=== PATIENT | male | born 1940 | race Caucasian/White ===

== ENCOUNTER 2018-11-02 13:33 | Outpatient (CLI) | payer BC, MEDICARE | END 2018-11-02 23:59 | disposition home or self-care (01) | LOC: CFH 13:33 | PROVIDERS: ATTEND Family Medicine | DX: I08.1 Rheumatic disorders of both mitral and tricuspid valves (principal); I48.1 Persistent atrial fibrillation; I10 Essential (primary) hypertension; E78.5 Hyperlipidemia, unspecified | CPT/HCPCS: 93306 ==

== ENCOUNTER 2019-04-25 04:28 | Inpatient (IN) | payer BC, MEDICARE ==
[2019-04-24 13:26] LABS: MICROSCOPIC NOT IND
[2019-04-24 13:33] LABS: CULTURE INDICATED? NO
[2019-04-24 13:36] LABS: BASOPHILS # (AUTO) 0.03 x10^3/uL (0-0.1); BASOPHILS % (AUTO) 1 % (0-1); EOSINOPHILS # (AUTO) 0.21 x10^3/uL (0-0.4); EOSINOPHILS % (AUTO) 4 % (1-7); LYMPHOCYTES # (AUTO) 1.38 x10^3/uL (1-3.4); LYMPHOCYTES % (AUTO) 25 % (22-44); MD NO; MEAN CORPUSCULAR HEMOGLOBIN 31.6 pg (27.5-34.5); MEAN CORPUSCULAR HGB CONC 32.8 g/dL (33.2-36.2); MEAN CORPUSCULAR VOLUME 96.3 fL (81-97); MONOCYTES # (AUTO) 0.63 x10^3/uL (0.2-0.8); MONOCYTES % (AUTO) 11 % (2-9); NEUTROPHILS # (AUTO) 3.36 x10^3/uL (1.8-6.8); NEUTROPHILS % (AUTO) 60 % (42-75); PLATELET COUNT 240 x10^3/uL (130-400); RED BLOOD COUNT 4.89 x10^6/uL (4.38-5.82); RED CELL DISTRIBUTION WIDTH 14.6 % (9.4-14.8)
[2019-04-24 13:46] LABS: INTERNATIONAL NORMALIZED RATIO 1.01 (0.93-1.1); PROTHROMBIN TIME 10.7 Seconds (9.6-11.5)
[2019-04-24 13:48] LABS: ALANINE AMINOTRANSFERASE 49 U/L (12-78); ALBUMIN 3.9 g/dL (3.4-5.0); ANION GAP 5 mmol/L (5-15); CALCIUM 9.2 mg/dL (8.5-10.1); CHLORIDE 109 mmol/L (98-107); CREATININE 1.05 mg/dL (0.7-1.3)
[2019-04-24 13:50] LABS: ALKALINE PHOSPHATASE 72 U/L (45-117); BILIRUBIN,TOTAL 0.8 mg/dL (0.2-1.0); TOTAL PROTEIN 7.1 g/dL (6.4-8.2)
[~2019-04-25] VITALS: Ht 175.3 cm; Wt 97.3 kg
[~2019-04-25 04:28] MED LIST: APIX5TAB PO; ATOR10TA9 PO; METO-93 PO; MULT-658 PO; Magnesium PO; TIMO2.5D4 OP; TIMO5DRO28 OP; [UNRECOGNIZED DRUG - CODE] PO
[2019-04-25 04:45] VITALS: BP 153/90
[2019-04-25 04:46] VITALS: BP 150/88
[2019-04-25] MEDS ORDERED: INSULIN LISPRO 100 UNITS/ML, PEN SQ-INSULIN SCH (05:00)
[2019-04-25] MEDS ORDERED: ACETAMINOPHEN 325 MG TABLET PO PRN ×2 (05:00→12:00)
[2019-04-25] MEDS ORDERED: CHLORHEXIDINE 15 ML UDC MM PRN (05:00)
[2019-04-25] MEDS ORDERED: FENTANYL PF 250 MCG/5ML ONE ×4 (06:45→06:46)
[2019-04-25] MEDS ORDERED: MIDAZOLAM 10MG/2 ML ONE (06:45)
[2019-04-25] MEDS ORDERED: AMINOCAPROIC ACID 250 MG/ML, 20ML ONE ×2 (06:46)
[2019-04-25] MEDS ORDERED: EPINEPHRINE 1 MG/ML, 1ML ONE (06:46)
[2019-04-25] MEDS ORDERED: CALCIUM CHLORIDE 10%, 10ML SYR ONE (06:46)
[2019-04-25] MEDS ORDERED: ROCURONIUM 10MG/ML,5ML ONE ×2 (06:46)
[2019-04-25] MEDS ORDERED: PROPOFOL 10 MG/ML, 20ML ONE (06:46)
[2019-04-25] MEDS ORDERED: PHENYLEPHRINE 10 MG/ML ONE (06:46)
[2019-04-25] MEDS ORDERED: VANCOMYCIN 1,400 MG in SODIUM CHLORIDE 0.9% 250 ML IV PRN (07:30)
[2019-04-25] MEDS ORDERED: MANNITOL PMX 20% 500 ML IVPB PRN (07:30)
[2019-04-25] MEDS ORDERED: POTASSIUM CHLORIDE 80 MEQ, SODIUM BICARBONATE 8.4% 10 MEQ, MAGNESIUM SULFATE 0.5 GM, LI... IV PRN (07:30)
[2019-04-25] MEDS ORDERED: DEXMEDETOMIDINE 200 MCG in SODIUM CHLORIDE 0.9% 48 ML IV SCH (07:30)
[2019-04-25] MEDS ORDERED: CEFUROXIME 1.5 GM in SODIUM CHLORIDE 0.9% 50 ML IVPB PRN (07:30)
[2019-04-25] MEDS ORDERED: ALBUMIN HUMAN 5% 500 ML IV PRN (07:30)
[2019-04-25] MEDS ORDERED: EPINEPHRINE 2 MG in SODIUM CHLORIDE 0.9% 248 ML IV SCH (07:30)
[2019-04-25] MEDS ORDERED: REGULAR INSULIN 62.5 UNITS in SODIUM CHLORIDE 0.9% 249.375 ML IV PRN ×2 (07:30→12:00)
[2019-04-25] MEDS ORDERED: PHENYLEPHRINE 10 MG in SODIUM CHLORIDE 0.9% 249 ML IV PRN ×2 (07:30→11:45)
[2019-04-25] MEDS ORDERED: SODIUM CHLORIDE FLUSH 10ML SYR IVF SCH (09:00)
[2019-04-25] MEDS ORDERED: MUPIROCIN OINT 2%, 22GM TP SCH (09:00)
[2019-04-25] MEDS: DOCUSATE 100 MG CAPSULE PO SCH ×2 (09:00→21:00)
[2019-04-25] MEDS ORDERED: FENTANYL PF 100 MCG/2ML ONE ×2 (11:00→11:10)
[2019-04-25] MEDS ORDERED: VASOPRESSIN 50 UNIT in SODIUM CHLORIDE 0.9% 247.5 ML IV PRN (11:45)
[2019-04-25] MEDS ORDERED: NITROGLYCERIN/D5W PMX 250 ML IV PRN (11:45)
[2019-04-25] MEDS ORDERED: DEXMEDETOMIDINE 200 MCG in SODIUM CHLORIDE 0.9% 48 ML IV PRN (11:45)
[2019-04-25] MEDS ORDERED: DOBUTAMINE 250 MG in SODIUM CHLORIDE 0.9% 230 ML IV PRN (11:45)
[2019-04-25] MEDS ORDERED: SODIUM CHLORIDE 0.9% 1,000 ML IV PRN (11:45)
[2019-04-25] MEDS ORDERED: GLUCAGON 1 MG IM PRN (12:00)
[2019-04-25] MEDS ORDERED: PROCHLORPERAZINE 5 MG/ML, 2ML IVPush PRN (12:00)
[2019-04-25] MEDS ORDERED: morphine SULFATE 10 MG/ML, 1ML IVPush PRN (12:00)
[2019-04-25] MEDS ORDERED: ONDANSETRON 2MG/ML, 2ML IVPush PRN (12:00)
[2019-04-25] MEDS ORDERED: BISACODYL 5 MG EC TABLET PO PRN (12:00)
[2019-04-25] MEDS ORDERED: DEXTROSE 4 GM TAB.CHEW PO PRN (12:00)
[2019-04-25] MEDS: KSCALE TO 4.5 IV SCH ×2 (12:00→18:00)
[2019-04-25] MEDS ORDERED: MAGNESIUM SULFATE 1 GM in SODIUM CHLORIDE 0.9% 50 ML IVPB SCH (12:00)
[2019-04-25] MEDS ORDERED: HYDROcodone/APAP 10/325 MG TABLET PO PRN (12:00)
[2019-04-25] MEDS ORDERED: ACETAMINOPHEN 650 MG SUPP PR PRN (12:00)
[2019-04-25] MEDS ORDERED: BISACODYL 10 MG SUPP PR PRN (12:00)
[2019-04-25] MEDS ORDERED: DEXTROSE 50%, 50ML SYRINGE IVPush PRN (12:00)
[2019-04-25] MEDS ORDERED: MIDAZOLAM 1 MG/ML, 5ML IVPush PRN (12:00)
[2019-04-25] MEDS ORDERED: SODIUM BICARB 8.4%, 50ML SYRINGE IV PRN ×2 (12:00→18:30)
[2019-04-25] MEDS ORDERED: methylPREDNISolone SOD SUCC 125 MG/2 ML ONE (12:09)
[2019-04-25] MEDS ORDERED: SODIUM BICARB 8.4%, 50ML SYRINGE ONE (12:09)
[2019-04-25] MEDS ORDERED: LIDOCAINE-MPF 2% ,5ML ONE (12:09)
[2019-04-25] MEDS ORDERED: HEPARIN 1,000 UNITS/ML, 30ML ONE (12:09)
[2019-04-25] MEDS ORDERED: ALBUMIN HUMAN 25% 50 ML ONE (12:10)
[2019-04-25 12:14] LABS: GLUCOSE BY BLOOD GAS ANALYZER 107 mg/dL (70-110); HEMOGLOBIN BY BLOOD GAS ANALYZ 13.6 g/dL (14.0-18.0); POTASSIUM BY BLOOD GAS ANALYZR 3.7 mmol/L (3.6-5.5)
[2019-04-25 12:37] LABS: INTERNATIONAL NORMALIZED RATIO 1.34 (0.93-1.1); PROTHROMBIN TIME 14.2 Seconds (9.6-11.5)
[2019-04-25] MEDS: MAGNESIUM SULFATE/D5W 100 ML IVPB SCH (12:40)
[2019-04-25] MEDS ORDERED: POTASSIUM CHLORIDE PMX 100 ML IV ONE ×2 (13:00→19:00)
[2019-04-25] MEDS: INSULIN LISPRO 100 UNITS/ML, PEN SQ-INSULIN SCH ×2 (16:00→21:00)
[2019-04-25] MEDS: LACTATED RINGERS 1,000 ML IV PRN ×2 (16:39→23:53)
[2019-04-25] MEDS: EPINEPHRINE 2 MG in SODIUM CHLORIDE 0.9% 248 ML IV PRN (16:39)
[2019-04-25] MEDS: VANCOMYCIN 1,400 MG in SODIUM CHLORIDE 0.9% 250 ML IVPB SCH (19:35)
[2019-04-25] MEDS: CEFUROXIME 1.5 GM in SODIUM CHLORIDE 0.9% 50 ML IVPB SCH (20:27)
[2019-04-25] MEDS: HYDROcodone/APAP 5/325 TABLET PO PRN (21:04)
[2019-04-25] MEDS: SODIUM CHLORIDE FLUSH 10ML SYR IVF SCH (21:06)
[2019-04-25] MEDS: MUPIROCIN OINT 2%, 22GM NAS SCH (23:51)
[2019-04-26] MEDS: LACTATED RINGERS 1,000 ML IV PRN (02:48)
[2019-04-26] MEDS: HYDROcodone/APAP 5/325 TABLET PO PRN (02:49)
[2019-04-26] MEDS: EPINEPHRINE 2 MG in SODIUM CHLORIDE 0.9% 248 ML IV PRN (03:02)
[2019-04-26 05:20] LABS: ALBUMIN 3.2 g/dL (3.4-5.0); ANION GAP 5 mmol/L (5-15); CALCIUM 7.7 mg/dL (8.5-10.1); CHLORIDE 115 mmol/L (98-107); CREATININE 0.75 mg/dL (0.7-1.3)
[2019-04-26 05:23] LABS: BASOPHILS # (AUTO) 0.03 x10^3/uL (0-0.1); BASOPHILS % (AUTO) 0 % (0-1); EOSINOPHILS % (AUTO) 0 % (1-7); LYMPHOCYTES # (AUTO) 0.44 x10^3/uL (1-3.4); LYMPHOCYTES % (AUTO) 5 % (22-44); MD NO; MEAN CORPUSCULAR HEMOGLOBIN 32.1 pg (27.5-34.5); MEAN CORPUSCULAR HGB CONC 33.6 g/dL (33.2-36.2); MEAN CORPUSCULAR VOLUME 95.5 fL (81-97); MEAN PLATELET VOLUME 7.6 fL (7.4-10.4); MONOCYTES # (AUTO) 0.83 x10^3/uL (0.2-0.8); MONOCYTES % (AUTO) 10 % (2-9); NEUTROPHILS % (AUTO) 84 % (42-75); PLATELET COUNT 117 x10^3/uL (130-400); RED BLOOD COUNT 3.76 x10^6/uL (4.38-5.82); RED CELL DISTRIBUTION WIDTH 14.4 % (9.4-14.8)
[2019-04-26 05:31] LABS: INTERNATIONAL NORMALIZED RATIO 1.11 (0.93-1.1); PROTHROMBIN TIME 11.8 Seconds (9.6-11.5)
[2019-04-26] MEDS: KSCALE TO 4.5 IV SCH ×2 (06:00)
[2019-04-26] MEDS: CEFUROXIME 1.5 GM in SODIUM CHLORIDE 0.9% 50 ML IVPB SCH (06:26)
[2019-04-26] MEDS: INSULIN LISPRO 100 UNITS/ML, PEN SQ-INSULIN SCH ×4 (06:34→20:15)
[2019-04-26] MEDS: VANCOMYCIN 1,400 MG in SODIUM CHLORIDE 0.9% 250 ML IVPB SCH (08:28)
[2019-04-26] MEDS: DOCUSATE 100 MG CAPSULE PO SCH ×2 (08:51→20:12)
[2019-04-26] MEDS: MUPIROCIN OINT 2%, 22GM NAS SCH ×2 (08:51→20:12)
[2019-04-26] MEDS: SODIUM CHLORIDE FLUSH 10ML SYR IVF SCH ×2 (08:51→20:11)
[2019-04-26] MEDS: ASPIRIN 81 MG TABLET EC PO SCH (08:51)
[2019-04-26] MEDS ORDERED: WARFARIN BIOPROSTHETIC VALVE PROTOCOL 2-3 XX SCH (09:00)
[2019-04-26] MEDS ORDERED: FUROSEMIDE 40 MG/4 ML IV ONE (10:00)
[2019-04-26] MEDS ORDERED: FUROSEMIDE 40 MG/4 ML ONE (10:01)
[2019-04-26] MEDS: MAGNESIUM SULFATE/D5W 100 ML IVPB SCH (13:47)
[2019-04-26] MEDS: OXYcodone IR 5MG TABLET PO PRN ×2 (13:47→20:13)
[2019-04-26] MEDS ORDERED: WARFARIN 5 MG TABLET PO-COUM ONE (18:00)
[2019-04-26] MEDS: CHLORHEXIDINE 15 ML UDC MM SCH (20:12)
[2019-04-27] MEDS: OXYcodone IR 5MG TABLET PO PRN ×3 (03:04→20:06)
[2019-04-27 04:33] LABS: INTERNATIONAL NORMALIZED RATIO 1.07 (0.93-1.1); PROTHROMBIN TIME 11.4 Seconds (9.6-11.5)
[2019-04-27 04:36] LABS: BASOPHILS # (AUTO) 0.04 x10^3/uL (0-0.1); BASOPHILS % (AUTO) 0 % (0-1); EOSINOPHILS # (AUTO) 0.01 x10^3/uL (0-0.4); EOSINOPHILS % (AUTO) 0 % (1-7); LYMPHOCYTES # (AUTO) 0.69 x10^3/uL (1-3.4); LYMPHOCYTES % (AUTO) 7 % (22-44); MD NO; MEAN CORPUSCULAR HEMOGLOBIN 32.5 pg (27.5-34.5); MEAN CORPUSCULAR HGB CONC 33.7 g/dL (33.2-36.2); MEAN CORPUSCULAR VOLUME 96.3 fL (81-97); MEAN PLATELET VOLUME 8.3 fL (7.4-10.4); MONOCYTES # (AUTO) 1.27 x10^3/uL (0.2-0.8); MONOCYTES % (AUTO) 12 % (2-9); NEUTROPHILS # (AUTO) 8.43 x10^3/uL (1.8-6.8); NEUTROPHILS % (AUTO) 81 % (42-75); PLATELET COUNT 118 x10^3/uL (130-400); RED BLOOD COUNT 3.76 x10^6/uL (4.38-5.82); RED CELL DISTRIBUTION WIDTH 14.6 % (9.4-14.8)
[2019-04-27 04:37] LABS: ANION GAP 6 mmol/L (5-15); CALCIUM 8.2 mg/dL (8.5-10.1); CHLORIDE 109 mmol/L (98-107)
[2019-04-27 04:41] LABS: CHOL/HDL RATIO 2.2; CHOLESTEROL, TOTAL 89 mg/dL (140-239); CREATININE 0.68 mg/dL (0.7-1.3); HDL CHOL % 45 % (26-37); HDL CHOLESTEROL (DIRECT) 40 mg/dL (40-60); LDL CHOLESTEROL,CALCULATED 35 mg/dL (54-169); LDL/HDL RATIO 0.9 (0.5-3.0); TRIGLYCERIDES 69 mg/dL (50-200); VLDL CHOLESTEROL 14 mg/dL (0-25)
[2019-04-27] MEDS: INSULIN LISPRO 100 UNITS/ML, PEN SQ-INSULIN SCH ×3 (06:10→20:09)
[2019-04-27] MEDS: SODIUM CHLORIDE FLUSH 10ML SYR IVF SCH ×2 (08:02→20:06)
[2019-04-27] MEDS: MUPIROCIN OINT 2%, 22GM NAS SCH ×2 (08:03→20:06)
[2019-04-27] MEDS: CHLORHEXIDINE 15 ML UDC MM SCH ×2 (08:03→20:06)
[2019-04-27] MEDS: ASPIRIN 81 MG TABLET EC PO SCH (08:03)
[2019-04-27] MEDS: DOCUSATE 100 MG CAPSULE PO SCH ×2 (08:03→20:04)
[2019-04-27] MEDS ORDERED: FUROSEMIDE 20 MG/2 ML ONE (08:06)
[2019-04-27] MEDS: FUROSEMIDE 20 MG/2 ML IV SCH (08:08)
[2019-04-27] MEDS ORDERED: CEFAZOLIN PMX 1GM/50ML 0 ML ONE ×2 (12:18→12:24)
[2019-04-27] MEDS ORDERED: LIDOCAINE 2%, 20ML ONE ×2 (12:18→12:24)
[2019-04-27] MEDS ORDERED: CEFAZOLIN 1,000 MG ONE ×2 (12:18→12:24)
[2019-04-27] MEDS ORDERED: MIDAZOLAM 1 MG/ML, 5ML ONE ×2 (12:18→12:24)
[2019-04-27] MEDS ORDERED: FENTANYL PF 100 MCG/2ML ONE ×2 (12:18→12:24)
[2019-04-27] MEDS: MAGNESIUM SULFATE/D5W 100 ML IVPB SCH (14:18)
[2019-04-27] MEDS: ATORVASTATIN 10 MG TABLET PO SCH (20:04)
[2019-04-28 06:05] LABS: INTERNATIONAL NORMALIZED RATIO 1.14 (0.93-1.1); PROTHROMBIN TIME 12.1 Seconds (9.6-11.5)
[2019-04-28 06:17] LABS: ANION GAP 6 mmol/L (5-15); CHLORIDE 106 mmol/L (98-107)
[2019-04-28 06:18] LABS: CREATININE 0.72 mg/dL (0.7-1.3)
[2019-04-28 06:33] LABS: BASOPHILS # (AUTO) 0.08 x10^3/uL (0-0.1); BASOPHILS % (AUTO) 1 % (0-1); EOSINOPHILS # (AUTO) 0.07 x10^3/uL (0-0.4); EOSINOPHILS % (AUTO) 1 % (1-7); LYMPHOCYTES # (AUTO) 0.71 x10^3/uL (1-3.4); LYMPHOCYTES % (AUTO) 9 % (22-44); MD NO; MEAN CORPUSCULAR HEMOGLOBIN 32.3 pg (27.5-34.5); MEAN CORPUSCULAR HGB CONC 33.3 g/dL (33.2-36.2); MEAN CORPUSCULAR VOLUME 96.9 fL (81-97); MEAN PLATELET VOLUME 8.2 fL (7.4-10.4); MONOCYTES # (AUTO) 1.03 x10^3/uL (0.2-0.8); MONOCYTES % (AUTO) 13 % (2-9); NEUTROPHILS # (AUTO) 6.26 x10^3/uL (1.8-6.8); NEUTROPHILS % (AUTO) 77 % (42-75); PLATELET COUNT 117 x10^3/uL (130-400); RED BLOOD COUNT 3.74 x10^6/uL (4.38-5.82); RED CELL DISTRIBUTION WIDTH 14.9 % (9.4-14.8)
[2019-04-28] MEDS: INSULIN LISPRO 100 UNITS/ML, PEN SQ-INSULIN SCH ×2 (07:00→11:00)
[2019-04-28] MEDS: CHLORHEXIDINE 15 ML UDC MM SCH (07:54)
[2019-04-28] MEDS: MUPIROCIN OINT 2%, 22GM NAS SCH ×2 (07:55→20:36)
[2019-04-28] MEDS: DOCUSATE 100 MG CAPSULE PO SCH ×2 (07:55→20:34)
[2019-04-28] MEDS: SODIUM CHLORIDE FLUSH 10ML SYR IVF SCH ×4 (07:55→21:00)
[2019-04-28] MEDS: ASPIRIN 81 MG TABLET EC PO SCH (07:55)
[2019-04-28] MEDS: FUROSEMIDE 20 MG/2 ML IV SCH (07:55)
[2019-04-28] MEDS ORDERED: MAGNESIUM HYDROXIDE 8%, 30ML UDC PO PRN (09:00)
[2019-04-28] MEDS ORDERED: LIDOCAINE 2%, 20ML ONE (12:46)
[2019-04-28] MEDS ORDERED: MIDAZOLAM 1 MG/ML, 5ML ONE (12:46)
[2019-04-28] MEDS ORDERED: CEFAZOLIN 1,000 MG ONE (12:46)
[2019-04-28] MEDS ORDERED: CEFAZOLIN PMX 1GM/50ML 50 ML ONE (12:46)
[2019-04-28] MEDS ORDERED: FENTANYL PF 100 MCG/2ML ONE (12:46)
[2019-04-28] MEDS ORDERED: HOLD MEDICATION MC PRN (14:30)
[2019-04-28 19:01] VITALS: BP 132/77
[2019-04-28 20:32] VITALS: BP 132/72
[2019-04-28] MEDS: ATORVASTATIN 10 MG TABLET PO SCH (20:34)
[2019-04-28] MEDS: CEFAZOLIN PMX 1GM/50ML 50 ML IVPB SCH (20:36)
[2019-04-28] MEDS: OXYcodone IR 5MG TABLET PO PRN (20:44)
[2019-04-29 01:20] VITALS: BP 135/75
[2019-04-29] MEDS: CEFAZOLIN PMX 1GM/50ML 50 ML IVPB SCH ×2 (05:01→16:35)
[2019-04-29 05:05] LABS: BASOPHILS # (AUTO) 0.05 x10^3/uL (0-0.1); BASOPHILS % (AUTO) 1 % (0-1); EOSINOPHILS # (AUTO) 0.13 x10^3/uL (0-0.4); EOSINOPHILS % (AUTO) 2 % (1-7); LYMPHOCYTES % (AUTO) 15 % (22-44); MD NO; MEAN CORPUSCULAR HEMOGLOBIN 32.5 pg (27.5-34.5); MEAN CORPUSCULAR HGB CONC 33.9 g/dL (33.2-36.2); MEAN CORPUSCULAR VOLUME 95.8 fL (81-97); MEAN PLATELET VOLUME 8.2 fL (7.4-10.4); MONOCYTES # (AUTO) 0.85 x10^3/uL (0.2-0.8); MONOCYTES % (AUTO) 14 % (2-9); NEUTROPHILS # (AUTO) 4.01 x10^3/uL (1.8-6.8); NEUTROPHILS % (AUTO) 68 % (42-75); PLATELET COUNT 130 x10^3/uL (130-400); RED BLOOD COUNT 3.37 x10^6/uL (4.38-5.82); RED CELL DISTRIBUTION WIDTH 14.6 % (9.4-14.8)
[2019-04-29 05:09] LABS: INTERNATIONAL NORMALIZED RATIO 1.16 (0.93-1.1); PROTHROMBIN TIME 12.3 Seconds (9.6-11.5)
[2019-04-29 05:12] LABS: ANION GAP 4 mmol/L (5-15); CALCIUM 7.5 mg/dL (8.5-10.1); CHLORIDE 107 mmol/L (98-107)
[2019-04-29 07:35] VITALS: BP 156/80
[2019-04-29] MEDS ORDERED: WARFARIN BIOPROSTHETIC VALVE PROTOCOL 2-3 XX PRN (08:00)
[2019-04-29] MEDS: SODIUM CHLORIDE FLUSH 10ML SYR IVF SCH ×6 (08:19→21:00)
[2019-04-29] MEDS ORDERED: FUROSEMIDE 40 MG/4 ML ONE (09:05)
[2019-04-29] MEDS: DOCUSATE 100 MG CAPSULE PO SCH ×2 (09:11→21:00)
[2019-04-29] MEDS: ASPIRIN 81 MG TABLET EC PO SCH (09:11)
[2019-04-29] MEDS: MUPIROCIN OINT 2%, 22GM NAS SCH ×2 (09:11→20:59)
[2019-04-29] MEDS: FUROSEMIDE 20 MG/2 ML IV SCH (09:13)
[2019-04-29 12:39] VITALS: BP 141/78
[2019-04-29] MEDS ORDERED: WARFARIN 5 MG TABLET PO-COUM ONE (18:00)
[2019-04-29 18:05] VITALS: BP 150/80
[2019-04-29] MEDS: METOPROLOL TARTRATE 25 MG TABLET PO SCH (18:06)
[2019-04-29 20:58] VITALS: BP 144/87
[2019-04-29] MEDS: ATORVASTATIN 10 MG TABLET PO SCH (21:00)
[2019-04-30 03:45] VITALS: BP 151/90
[2019-04-30 05:18] LABS: INTERNATIONAL NORMALIZED RATIO 1.2 (0.93-1.1); PROTHROMBIN TIME 12.7 Seconds (9.6-11.5)
[2019-04-30 05:23] LABS: BASOPHILS # (AUTO) 0.08 x10^3/uL (0-0.1); BASOPHILS % (AUTO) 1 % (0-1); EOSINOPHILS # (AUTO) 0.25 x10^3/uL (0-0.4); EOSINOPHILS % (AUTO) 4 % (1-7); LYMPHOCYTES # (AUTO) 0.98 x10^3/uL (1-3.4); LYMPHOCYTES % (AUTO) 17 % (22-44); MD NO; MEAN CORPUSCULAR HEMOGLOBIN 31.7 pg (27.5-34.5); MEAN CORPUSCULAR HGB CONC 32.8 g/dL (33.2-36.2); MEAN CORPUSCULAR VOLUME 96.7 fL (81-97); MEAN PLATELET VOLUME 7.6 fL (7.4-10.4); MONOCYTES # (AUTO) 0.82 x10^3/uL (0.2-0.8); MONOCYTES % (AUTO) 15 % (2-9); NEUTROPHILS # (AUTO) 3.52 x10^3/uL (1.8-6.8); NEUTROPHILS % (AUTO) 62 % (42-75); PLATELET COUNT 163 x10^3/uL (130-400); RED BLOOD COUNT 3.64 x10^6/uL (4.38-5.82); RED CELL DISTRIBUTION WIDTH 14.2 % (9.4-14.8)
[2019-04-30 05:24] LABS: ANION GAP 4 mmol/L (5-15); CHLORIDE 105 mmol/L (98-107)
[2019-04-30] MEDS: METOPROLOL TARTRATE 25 MG TABLET PO SCH (05:38)
[2019-04-30 08:14] VITALS: BP 164/89
[2019-04-30] MEDS ORDERED: LISINOPRIL 10 MG TABLET PO SCH (09:00)
[2019-04-30] MEDS ORDERED: LISI-167 PO (09:07)
[2019-04-30] MEDS ORDERED: ACET325C6 PO (09:07)
[2019-04-30] MEDS ORDERED: WARF5TAB PO (09:07)
[2019-04-30] MEDS ORDERED: METO25TA35 PO (09:07)
[2019-04-30] MEDS ORDERED: POTA10TA5 PO (09:07)
[2019-04-30] MEDS ORDERED: FURO-93 PO (09:07)
[2019-04-30] MEDS ORDERED: ASPI81TA45 PO (09:07)
[2019-04-30] MEDS: FUROSEMIDE 20 MG/2 ML IV SCH (09:28)
[2019-04-30] MEDS: ASPIRIN 81 MG TABLET EC PO SCH (09:28)
[2019-04-30] MEDS: DOCUSATE 100 MG CAPSULE PO SCH (09:28)
[2019-04-30] MEDS: SODIUM CHLORIDE FLUSH 10ML SYR IVF SCH (09:29)
[2019-04-30] MEDS: MUPIROCIN OINT 2%, 22GM NAS SCH (09:29)
[2019-04-30] MEDS ORDERED: POTASSIUM CHLORIDE 20 MEQ TAB.ER.PRT ONE (09:29)
[2019-04-30] MEDS ORDERED: POTASSIUM CHLORIDE 20 MEQ TAB.ER.PRT PO ONE (09:30)
[2019-04-30 12:18] VITALS: BP 117/72
== END 2019-04-30 15:20 | disposition home or self-care (01) | DRG 220 ==
LOC: 5SO 04:28 → CSU 08:52 → 5SO 04-28 13:20 → DCLOUNGE 04-30 14:47
PROVIDERS: ADMIT Thoracic Surgery (Cardiothoracic Vascular Surgery); ATTEND Thoracic Surgery (Cardiothoracic Vascular Surgery)
PROC: 02580ZZ Destruction of Conduction Mechanism, Open Approach (ICD-10-PCS; 2019-04-25)
PROC: 02RX0JZ Replacement of Thoracic Aorta, Ascending/Arch with Synthetic Substitute, Open Approach (ICD-10-PCS; 2019-04-25)
PROC: B24BZZ4 Ultrasonography of Heart with Aorta, Transesophageal (ICD-10-PCS; 2019-04-25)
PROC: 5A1221Z Performance of Cardiac Output, Continuous (ICD-10-PCS; 2019-04-25)
PROC: 02B70ZK Excision of Left Atrial Appendage, Open Approach (ICD-10-PCS; 2019-04-25)
PROC: 03HY32Z Insertion of Monitoring Device into Upper Artery, Percutaneous Approach (ICD-10-PCS; 2019-04-25)
PROC: 02QG0ZZ Repair Mitral Valve, Open Approach (ICD-10-PCS; principal; 2019-04-25 07:30)
PROC: 02HV33Z Insertion of Infusion Device into Superior Vena Cava, Percutaneous Approach (ICD-10-PCS; 2019-04-26)
PROC: B548ZZA Ultrasonography of Superior Vena Cava, Guidance (ICD-10-PCS; 2019-04-26)
PROC: 0JH606Z Insertion of Pacemaker, Dual Chamber into Chest Subcutaneous Tissue and Fascia, Open Approach (ICD-10-PCS; 2019-04-28)
PROC: 02H63JZ Insertion of Pacemaker Lead into Right Atrium, Percutaneous Approach (ICD-10-PCS; 2019-04-28)
PROC: 02HK3JZ Insertion of Pacemaker Lead into Right Ventricle, Percutaneous Approach (ICD-10-PCS; 2019-04-28)
DX: I34.0 Nonrheumatic mitral (valve) insufficiency (principal); I44.2 Atrioventricular block, complete; I48.91 Unspecified atrial fibrillation; I11.0 Hypertensive heart disease with heart failure; Z79.01 Long term (current) use of anticoagulants; I71.4 Abdominal aortic aneurysm, without rupture; I71.2 Thoracic aortic aneurysm, without rupture; I34.1 Nonrheumatic mitral (valve) prolapse; R00.1 Bradycardia, unspecified; I50.9 Heart failure, unspecified; I25.10 Atherosclerotic heart disease of native coronary artery without angina pectoris; E87.6 Hypokalemia; E78.5 Hyperlipidemia, unspecified; K59.00 Constipation, unspecified; Z85.828 Personal history of other malignant neoplasm of skin; Z79.899 Other long term (current) drug therapy; Z91.040 Latex allergy status
CPT/HCPCS: 33208; 36415; 36600; J3490; S0017; 71045; 71046; 80048; 80053; 80061; 81003; 82040; 82330; 82800; 82803; 82810; 82947; 82962; 83036; 83735; 84132; 84295; 85014; 85018; 85025; 85049; 85347; 85610; 85730; 86850; 86900; 86923; 87081; 88304; 88305; 93005; 93312; 93321; 93325; 93880; 94002; 94150; 99156; 99157; C1779; C1785; C1892; G0378; J0171; J0690; J0697; J1644; J1815; J1940; J2250; J2405; J2704; J3010; J3370; J3475; J3480; P9045; P9047; C1751; C1760; C1768; J2370; J2930; J7030; J7050; J7120